=== PATIENT | female | born 1970 | race Caucasian/White ===

== ENCOUNTER 2018-02-23 15:58 | Outpatient (CLI) | payer OTHER | END 2018-02-23 15:59 | disposition home or self-care (01) | LOC: BICMAMMO 15:58 | PROVIDERS: ATTEND Family Medicine | DX: Z12.31 Encounter for screening mammogram for malignant neoplasm of breast (principal) | CPT/HCPCS: 77063; 77067 ==

== ENCOUNTER 2019-09-14 19:45 | Emergency (ER) | payer OTHER, SELFPAY ==
[2019-09-14] MEDS ORDERED: Ketamine 50 MG/ML (10ML VIAL) ONE (19:51)
[2019-09-14] MEDS ORDERED: Rocuronium Bromide 10 MG/ML (10ML VIAL) ONE (19:51)
[2019-09-14] MEDS ORDERED: Labetalol HCl 100 MG/20 ML VIAL ONE (20:07)
[2019-09-14 20:08] LABS: #Eosinphils 0.1 thou/uL (0.0-0.7); #Monocytes 0.6 thou/uL (0.11-0.59); %Basophils 0.2 % (0.0-1.0); %Eosinophils 1.4 % (0.0-10.0); %Lymphocytes 34.6 % (21.0-51.0); %Monocytes 7.2 % (0.0-10.0); %Neutrophils 56.6 % (42.0-75.0); Hemoglobin 13.1 g/dL (12.0-16.0); Mean Corpuscular Hemoglobin 27.6 pg (27.0-31.0); Mean Corpuscular Volume 83.5 fL (78.0-98.0); Mean Platelet Volume 8.6 fL (7.4-10.4); Platelet Count 223 thou/uL (130-400); RBC Distribution Width 13.6 % (11.5-14.5); Red Blood Cell (RBC) Count 4.75 mill/uL (4.20-5.40); White Blood Cell (WBC) Count 8.8 thou/uL (4.8-10.8)
[2019-09-14] MEDS ORDERED: PROPOFOL 0 ML ONE (20:09)
[2019-09-14] MEDS ORDERED: Propofol 1,000 MG/100 ML VIAL IV ONE ×2 (20:09→22:03)
[2019-09-14 20:15] LABS: PTT 26.9 SEC (22.9-36.1); Prothrombin Time 13.3 SEC (12.0-14.7)
[2019-09-14 20:22] LABS: ALT (SGPT) 11 U/L (8-55); AST (SGOT) 13 U/L (5-34); Albumin 4.1 g/dL (3.5-5.0); Alkaline Phosphatase 116 U/L (40-110); Anion Gap 11 mmol/L (10-20); BUN (Urea Nitrogen) 6 mg/dL (9.8-20.1); Bilirubin, Total 0.4 mg/dL (0.2-1.2); CK (CPK) 68 U/L (29-168); Calc. Creatinine Clearance 0 mL/min (70-130); Calcium 9.3 mg/dL (7.8-10.44); Carbon Dioxide 25 mmol/L (22-29); Chloride 106 mmol/L (98-107); Estimated GFR-MDRD 78; Globulin 2.8 g/dL (2.4-3.5); Glucose 122 mg/dL (70-105); Potassium 3.4 mmol/L (3.5-5.1); Protein, Total 6.9 g/dL (6.0-8.3); Sodium 139 mmol/L (136-145)
[2019-09-14 20:29] LABS: Acetaminophen Less than 6.0 mcg/mL (10.0-30.0); Alcohol Less than 10 mg/dL (Less than 10); Salicylate Less than 8.0 mg/dL (15.0-30.0)
--- NOTE | 2019-09-14 20:34 | CT ---
CT OF BRAIN PERFORMED WITHOUT CONTRAST ENHANCEMENT: 09/14/19 HISTORY: Right sided weakness and facial droop. Ventricular and cisternal system is within normal limits. The left middle cerebral artery appears hyp erdense and actually a portion of the anterior cerebral artery appears mildly dense. There is also an area of calcification which is just along the right side of the sella turcica. I am not certain what this would represent. I cannot definitely exclude it as a calcified aneurysm. No bleed is noted. IMPRESSION: Hyperdense left MCA. Also some increased density to the anterior cerebral artery and an area of calc ification along the right side of the hoopa of Ro. Further investigation with CT angiography wou ld be recommended. Findings were discussed with Dr. Ríos at 2005 hours. POS: RISHI
[2019-09-14 20:40] LABS: Actual Bicarbonate (HCO3a) 23.4 mEq/L (22-28); Analyzer IN Cardio ER; CO2 Tension 38.1 mmHg (35.0-45.0); Calcium, Ionized 1.18 mmol/L (1.12-1.30); Carboxyhemoglobin (COHb) 2.4 gm% (0.0-3.0); Hemoglobin (Hb) 12.8 g/dL (12.0-16.0); O2 Tension (PaO2) 295.2 mmHg (80.0-100.0); Potassium - ABG Lab 2.98 mmol/L (3.70-5.30); Puncture Site LRA; pH, Arterial 7.41 (7.35-7.45)
[2019-09-14 20:41] LABS: ALV-art Gradient 84.975 (0-20)
--- NOTE | 2019-09-14 20:49 | RAD ---
CHEST ONE VIEW: 09/13/28 HISTORY: Stroke-like symptoms. COMPARISON: None. FINDINGS: Enteric tube is in place with the tip at the gastric fundus. Endotracheal tube tip is in place with t ip above arpan approximately 2.3 cm. No confluent air space consolidation, pneumothorax or effusion. No acute osseous abnormality. IMPRESSION: Lines and tubes as above. POS: HOME
[2019-09-14 20:51] LABS: Amphetamine Detected (NotDetected); Barbiturates Screen Not Detected (NotDetected); Benzodiazepine Screen Not Detected (NotDetected); Cocaine Metabolite Screen Not Detected (NotDetected); Medtox Control Line Valid? VALID (VALID); Medtox Reader # READER 1; Methadone Not Detected (NotDetected); Methamphetamine Not Detected (NotDetected); Opiate Screen Not Detected (NotDetected); Oxycodone Screen Not Detected (NotDetected); Phencyclidine (PCP) Not Detected (NotDetected); THC/Cannabinoid Screen Not Detected (NotDetected); Tricyclic Screen Not Detected (NotDetected)
[2019-09-14] MEDS ORDERED: niCARdipine 20MG In NaCl 20 MG/200 ML BAG ONE (20:52)
--- NOTE | 2019-09-14 21:04 | CT ---
CT ANGIO OF HEAD AND NECK PERFOMED WITH INTRAVENOUS CONTRAST ENHANCEMENT WITH 3D RECONSTRUCTIONS: 09/14/19 HISTORY: Lung apices are clear of any infiltrative process. The thyroid gland and vocal cord regions are unrem arkable. No significant jugular chain adenopathy of the parapharyngeal spaces are clear. The angiographic portion of this study shows a separate origin of the left common carotid artery from the aortic arch. On the right side, the right common carotid artery is normal. There is calcified pl aque formation at the origin of the internal and external carotid artery without evidence of signific ant stenosis by NASCET criteria. On the left side, there is calcified plaque at the left carotid bifurcation again without evidence of aneurysm. Approximately 3 to 4 cm distal to the origin of the left internal carotid artery, it takes a very tortuous looped course and the vessel becomes very tiny. There is some increased soft tissue density surrounding this area. Minimal flow is seen distal to this level. CT ANGIO OF BRAIN PERFORMED WITH CONTRAST ENHANCEMENT: The right internal carotid artery is unremarkable. There is a calcification which is just at the orig in of the A1 and M1 segments of the right anterior cerebral artery which appears to represent a small calcified aneurysm. The A1 segment appears slightly narrowed at this level but there is cross fillin g to the A1 component of the left anterior cerebral and some filling of some of the more distal anter ior cerebral branches but definitely diminished flow as compared to the left side. There is also some flow within a very small left middle cerebral artery and some minimal flow within some of the Isabella n vessels on the left. IMPRESSION: 1. Marked tortuosity to the left common carotid artery about 4 cm from the carotid bifurcation. Increased soft tissue density associated with the area of fairly pronounced narrowing of the extracra nial internal carotid artery at this level. 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 There is diminished flow within the internal carotid artery dis linda to this level. 2. Markedly diminished flow to the left middle cerebral artery. Main flow appears to be contribu laz from the right side. 3. Small calcification near the takeoff of the A1 and M1 segments of the right internal carotid artery suggestion of small aneurysm. Also what appears to be some narrowing to the origin of the A1 b ranch of the anterior cerebral artery on the right. 4. Very diminished flow also seen within the left anterior cerebral artery. 5. Codominant vertebral arteries with normal appearing basilar artery and posterior cerebral art eries. 6. Findings telephoned to Dr. Ríos at 2018 hours. POS: RISHI
[2019-09-14 22:00] LABS: Bilirubin Negative (Negative); Blood, Urine Negative (Negative); Clarity Clear (Clear); Glucose, Urine (Dipstick) Normal (Negative); Leukocyte Negative Leu/uL (Negative); Nitrite Negative (Negative); Protein, Urine (Dipstick) Negative (Neg-Trace); Urobilinogen Normal mg/dL (Less than 2)
--- NOTE | 2019-09-16 15:40 | EKG ---
Test Reason : Blood Pressure : / mmHG Vent. Rate : 081 BPM Atrial Rate : 081 BPM P-R Int : 214 ms QRS Dur : 092 ms QT Int : 426 ms P-R-T Axes : 061 018 041 degrees QTc Int : 494 ms Sinus rhythm with 1st degree A-V block Possible Inferior infarct , age undetermined Abnormal ECG Confirmed by VENITA RODRIGUEZ M.D. ([id number]), film or videotape editor ROXANA SANCHEZ ([id number]) on 09/16/2019 3:40:09 PM Referred By: Confirmed By:VENITA RODRIGUEZ M.D.
== END 2019-09-14 22:22 | disposition short-term general hospital (02) ==
LOC: ERS 19:45
DX: I77.71 Dissection of carotid artery (principal); I10 Essential (primary) hypertension; F32.9 Major depressive disorder, single episode, unspecified; F17.210 Nicotine dependence, cigarettes, uncomplicated
CPT/HCPCS: 31500; 51702; 70450; 70496; 70498; 71045; 80053; 80306; 80307; 81003; 82550; 82805; 83605; 84484; 85025; 85610; 85730; 86850; 86900; 86901; 93005; 94002; 96365; 96366; 96368; 96374; 96375; 99292; J2704; J2997